=== PATIENT | male | born 1995 | race Native Hawaiian/Other Pacific Islander ===

== ENCOUNTER 2020-12-04 09:57 | Emergency (ER) | payer OTHER ==
[~2020-12-04] VITALS: Ht 185.4 cm; Wt 99.8 kg
[2020-12-04 10:12] VITALS: TEMP 98.6
[2020-12-04 11:16] LABS: PLATELET COUNT 290 K/uL (142-355)
[2020-12-04 11:17] LABS: POTASSIUM 4.3 mmol/L (3.6-5.2)
[2020-12-04 12:04] VITALS: BP 132/81
== END 2020-12-04 12:06 | disposition home or self-care (01) ==
LOC: ED 09:57
PROVIDERS: Hospitalist
DX: F41.8 Other specified anxiety disorders (principal); F41.0 Panic disorder [episodic paroxysmal anxiety]
CPT/HCPCS: 36415; 80053; 80307; 80320; 80329; 81000; 85027; 93005; 99283; Q0177